=== PATIENT | male | born 1945 | race Caucasian/White ===

== ENCOUNTER 2022-04-11 13:03 | Outpatient (REF) | payer MEDICARE, SELFPAY ==
--- NOTE | 2022-04-11 13:08 | EEG_ITS ---
PROCEDURE: 24-hour ambulatory EEG. Waking background activity consists of a well-defined, moderate-voltage 10 hertz alpha frequency that is seen symmetrically and attenuates well with eye opening while low-voltage fast frequencies predominant anteriorly. Drowsiness is characterized by diffuse theta slowing. Symmetrical frontocentral sleep spindles developed over both hemispheres. Arousals are unremarkable. The patient remains asymptomatic. Stages I through IV sleep are noted. No focal, lateralizing, or paroxysmal discharges seen. IMPRESSION: This 24-hour ambulatory EEG is within normal limits. MD SHIKHA Ddod/TAINA / [id number]
== END 2022-04-11 13:04 | disposition home or self-care (01) ==
LOC: HO.NEURO 13:03
PROVIDERS: PCP Internal Medicine; Visit Provider Psychiatry & Neurology Neurology
DX: R56.9 Unspecified convulsions (principal)
CPT/HCPCS: 95708